=== PATIENT | female | born 1955 | race Caucasian/White ===

== ENCOUNTER 2022-03-10 08:43 | Outpatient (CLI) | payer MEDICARE, MEDICAID, SELFPAY ==
--- NOTE | ~2022-03-10 | CT_ITS ---
EXAMINATION: CT abdomen w con DATE: 03/10/2022 09:29 INDICATION: Abdominal hernia with 2 months of abdominal pain TECHNIQUE: Computed tomography (CT) of the abdomen was performed with 100 mL Omnipaque-300 intravenou s contrast. Automated exposure control and iterative reconstruction technique were employed. The dose -length product was 244.83 mGy-cm. COMPARISON: 04/05/2019 FINDINGS: Mild dependent atelectasis in the right lower lobe. Heart size is normal. No pericardial or pleural e ffusion. Atherosclerotic coronary artery calcific location. Bilateral breast implants with prominent capsular calcification. A few tiny calcified gallstones in the dependent aspect of the normal-appeari ng gallbladder. Liver, spleen, pancreas, right kidney and bilateral adrenal glands are normal. Couple subcentimeter low-attenuation likely cysts at the upper pole of the left kidney which are too small to definitively characterize. Interval development of a large supraumbilical ventral hernia along a p rior surgical scar. The hernia sac measures 13.3 x 5.9 x 6.9 cm and contains a portion of the transve rse colon, small portion of the anterior wall of the greater curvature of the stomach and couple loop s of small bowel. No bowel obstruction or abnormal bowel wall thickening. The hernia orifice measures 7.8 x 5.6 cm. There is calcified atherosclerosis of the aorta and many of the other arteries. There appears to be at least 70% stenosis at the origins of both the celiac and superior mesenteric arterie s. No pathologically enlarged abdominal lymphadenopathy. There are 6 nonrib-bearing lumbar segments. There is chronic mild anterior wedging at T12 and L1. IMPRESSION: 1. New large supraumbilical ventral hernia containing nonobstructed loops of large and small bowel al so a small portion of the anterior wall of the greater curvature of the stomach. 2. Extensive atherosclerotic disease with at least moderate stenosis at origins of the celiac axis an d superior mesenteric artery. Reviewed, dictated and finalized at location A. IMPRESSION: 1. New large supraumbilical ventral hernia containing nonobstructed loops of la rge and small bowel also a small portion of the anterior wall of the greater cu rvature of the stomach. 2. Extensive atherosclerotic disease with at least moderate stenosis at origins of the celiac axis and superior mesenteric artery.
[2022-03-10 09:24] LABS: Estimated Glomerular Filt Rate > 60
== END 2022-03-10 08:44 | disposition home or self-care (01) ==
PROVIDERS: PCP Family Medicine; Visit Provider Family Medicine
DX: R10.9 Unspecified abdominal pain (principal); K43.9 Ventral hernia without obstruction or gangrene; I70.8 Atherosclerosis of other arteries
CPT/HCPCS: 74160; Q9967